=== PATIENT | female | born 1970 | race Caucasian/White ===

== ENCOUNTER → 2016-12-04 | Outpatient (CLI) | payer BC ==
[~2016-12-04] MED LIST: LAMO1TAB21; LIOT50TA PO; THYR300T
--- NOTE | 2016-12-04 12:26 | MAMMOGRAPHY REPORT ---
UNILATERAL RIGHT DIGITAL DIAGNOSTIC MAMMOGRAM TOMOSYNTHESIS WITH CAD AND TARGETED RIGHT ULTRASOUND: 12/04/2016 CLINICAL HISTORY: History of right breast mass status post ultrasound-guided biopsy April 2016. The pathology showed benign breast tissue, with some areas showing fibroadenomatoid features and and oth ers showing sclerosing adenosis. Here for short interval follow-up of the right breast mass. TECHNIQUE: Breast tomosynthesis in addition to standard 2D mammography was performed. Current study was also evaluated with a Computer Aided Detection (CAD) system. Right CC and MLO 2-D and tomosynt hesis images were obtained. COMPARISON: Comparison is made to exams dated: 04/15/2016 mammogram, 04/09/2016 mammogram, 01/25/2014 ul trasound, 01/25/2014 mammogram, and 07/19/2013 mammogram - [facility]. BREAST COMPOSITION: There are scattered areas of fibroglandular density in the right breast. FINDINGS: Again noted is an oval mass with obscured margins in the right upper outer quadrant, with an associated biopsy marker clip. The mass does not appear significantly changed compared to the p rior March and April 2016 exams. The remainder of the right breast is stable compared to prior exams, without suspicious masses, calcifications, or areas of architectural distortion noted. Targeted ultrasound was performed of the area of the previously biopsied mass. In the right breast at 10:00, 7 cm from the nipple, again noted is an oval hypoechoic parallel circumscribed mass, with an echogenic biopsy marker clip seen within it. The mass currently measures 11 x 5 x 8 mm, and is n ot significantly changed compared to the April 2016 exam where the mass measured 10 x 5 x 9 mm. Give n that the mass was biopsied and yielded benign pathology and given the stability, the mass is consi dered benign. IMPRESSION: ACR BI-RADS CATEGORY 2: BENIGN, TARGETED ULTRASOUND ACR BI-RADS CATEGORY 2: BENIGN Stable size and appearance of the hypoechoic 11 mm mass in the right breast at 10:00. This was prev iously biopsied and yielded benign pathology. Given the benign pathology on biopsy and given the st ability, the mass is considered benign. There is no mammographic or targeted sonographic evidence o f malignancy. Return to annual mammogram screening schedule is recommended, due April 2017. The patient has been verbally notified of the results. Approximately 10% of breast cancers are not detected with mammography. A negative mammographic repor t should not delay biopsy if a clinically suggestive mass is present. Abigail Emanuel M.D. ah/:12/04/2016 10:08:48 Manager Food Safety: Luisana MEANS(Jorge)(Jarret), [facility] letter sent: Normal 1/2 BI-RADS Code: ACR BI-RADS Category 2: Benign Ultrasound BI-RADS: ACR BI-RADS Category 2: Benign
== END | disposition home or self-care (01) ==
LOC: C.MAMM 09:15
PROVIDERS: ATTEND Internal Medicine
DX: N63 Unspecified lump in breast (principal)

== ENCOUNTER → 2017-04-19 | Outpatient (CLI) | payer BC, OTHER | END | disposition home or self-care (01) | LOC: C.PAPS 11:56 | PROVIDERS: ATTEND Obstetrics & Gynecology | DX: Z01.419 Encounter for gynecological examination (general) (routine) without abnormal findings (principal) ==

== ENCOUNTER → 2017-04-27 | Outpatient (CLI) | payer BC, OTHER ==
[2017-04-27 17:07] LABS: URINE APPEARANCE CLOUDY (CLEAR); URINE BILIRUBIN NEG (NEG); URINE COLOR ORANGE; URINE NITRITE POS (NEG); URINE SPECIFIC GRAVITY 1.013 (1.000-1.030); UROBILINOGEN NEG (NEG)
[2017-04-27 17:09] LABS: MANUAL MICROSCOPIC REQUIRED? NO; REVIEW REQ? YES
== END | disposition home or self-care (01) ==
LOC: C.LABBC 15:24
PROVIDERS: ATTEND Physician Assistant Medical
DX: R39.9 Unspecified symptoms and signs involving the genitourinary system (principal)

== ENCOUNTER → 2017-08-17 | Outpatient (CLI) | payer BC ==
[2017-08-20 00:32] LABS: CHLAMYDIA TRACH RNA*** NOT DETECTED (NOT DETECTED); GC (NEIS GONORRHOEAE)RNA** NOT DETECTED (NOT DETECTED)
== END | disposition home or self-care (01) ==
LOC: C.LABSPEC 17:59
PROVIDERS: ATTEND Physician Assistant
DX: Z11.3 Encounter for screening for infections with a predominantly sexual mode of transmission (principal)

== ENCOUNTER → 2017-09-16 | Outpatient (CLI) | payer BC | END | disposition home or self-care (01) | LOC: C.LABBC 14:23 | PROVIDERS: ATTEND Physician Assistant | DX: Z11.3 Encounter for screening for infections with a predominantly sexual mode of transmission (principal) ==

== ENCOUNTER 2021-06-10 14:21 | Observation (INO) ==
--- NOTE | 2021-06-10 15:39 | Emergency Department Note ---
Impression & Plan Acute left flank pain, Elevated d-dimer, Pulmonary emboli, Tachycardia ED Provider Note NAME: JELLY ESTEVEZ AGE: 51 SEX: F : 1970 ARRIVES VIA: Walk-In INFORMANT: [Patient] ED PROVIDER(S): [Kasi Myers MD] CHIEF COMPLAINT: Abnormal labs/imaging HISTORY OF PRESENT ILLNESS: The patient is a 51-year-old female who states that about a week ago, she developed pain in her left flank that she thought was muscular. The pain went away pretty quickly but she went to her doctor's office and had a chest x-ray. The x-ray was negative. A D-dimer test was positive. Today, she had a CT of her chest and a PE was noted. She was directed to the ED. The patient feels a bit dizzy at times but does not have any more back pain. She is not short of breath. No chest pain. No fever or cough. She has never had a DVT or PE. There is no family history of this diagnosis. She has not had pain in her legs. There has been no long trip by car, plane or train. REVIEW OF SYSTEMS: See HPI for pertinent positives and negatives. A total of ten systems were reviewed and were otherwise negative. PMHx/PSHx: See Below SOCIAL HISTORY: See Below. PHYSICAL EXAM: GENERAL: Patient is in no acute distress. HEENT: No acute trauma, normocephalic atraumatic, mucous membranes moist, no nasal congestion, no scleral icterus. NECK: No stridor, no adenopathy, no meningismus, trachea is midline. LUNGS: Clear to auscultation bilaterally, no wheeze, no rhonchi, breath sounds equal. HEART: Mildly tachycardic, regular rhythm, no murmurs. ABDOMEN: Soft, nontender, bowel sounds positive, no hernias, no peritonitis. EXTREMITIES: No cyanosis or edema, full range of motion of all the joints without pain or difficulty, no signs for acute trauma. NEUROLOGIC: Oriented x 3, no acute motor or sensory deficits, no focal weakness. SKIN: No rash, no jaundice, no diaphoresis. DIFFERENTIAL DIAGNOSIS: Cardiac ischemia, aortic dissection, pulmonary embolism, DVT, pneumothorax, pneumonia, pericarditis, myocarditis, esophageal rupture, GERD, cholecystitis, pancreatitis, musculoskeletal, as well as other pathologies. EMERGENCY DEPARTMENT COURSE/PROCEDURES: ECG: Indication was tachycardia and pulmonary emboli. The ECG shows a sinus rhythm with a rate of 97. There is no ST elevation, no PVCs. There is some artifact present. The QTc is 439. Continuous Cardiac Monitoring: An order was placed for continuous cardiac monitoring. The monitor shows a rate of 91 with normal sinus rhythm. Critical Care Note: I have personally spent 49 minutes of critical care time in the direct management of this patient. This includes bedside care, interpretation of diagnostic studies, and testing, discussion with consultants, patient, and family members, and other required patient management activities. This 49 minutes is in excess of all separately billable procedures. MEDICAL DECISION MAKING: There is no leukocytosis or concerning anemia. Platelet count slightly elevated. No coagulopathy. No significant electrolyte abnormality or kidney failure. No worrisome liver enzyme elevation. ECG showed a sinus rhythm, no acute ischemic change. Cardiac enzyme testing x1 is not consistent with acute cardiac injury. BNP is not elevated. Covid testing returned negative. Bilateral lower extremity ultrasound did not show any evidence for DVT. The patient presents with an abnormal D-dimer as an outpatient. She subsequently had a chest CT showing bilateral pulmonary emboli and a pulmonary infarct. There was some right heart strain suggested. The patient is in need of a hospital stay given the findings on CT. I did elect to start IV heparin. The heparin was started here in the ED. The patient is aware of her findings, she understands the need for a hospital stay and further work-up. I did speak with the patient and case management. The on-call hospitalist was consulted. Past Med/Surg History Medical History ADD (attention deficit disorder) Depression Hypothyroidism Surgical History H/O breast biopsy (~2015) US guided core biopsy right breast - benign H/O colonoscopy (~2012) H/O LEEP History of wisdom tooth extraction Family History Grandmother (Maternal) Breast cancer Father Colorectal cancer, Onset Age: 43 Other No family history of adverse response to anesthesia Denies family history of Ovarian cancer Social History Smoking Status: Never smoker Second Hand Exposure: No; Hx Alcohol Use: Yes Hx Substance Use: No Preferred Language: Azeri Communication Ability: Effective Fudger Required: No Beliefs That Will Affect Care: None Current Living Situation: Alone Feels Safe at Home: Yes Safety Concerns: Feels Safe At This Time Assistive Devices: None Allergies Allergies Allergy/AdvReac Type Severity Reaction Status Date / Time Penicillins Allergy Unknown Verified 06/10/21 21:04 sulfamethoxazole Allergy Unknown Verified 06/10/21 21:04 [From Bactrim] trimethoprim [From Bactrim] Allergy Unknown Verified 06/10/21 21:04 Home Meds Home Medications Medication Instructions Recorded Confirmed dextroamphetamine-amphetamine 10 10 mg PO BID 11/11/20 06/10/21 mg tablet (Adderall) duloxetine 60 mg capsule,delayed 60 mg PO QPM 11/11/20 06/10/21 release lamotrigine 200 mg tablet 200 mg PO QPM 11/11/20 06/10/21 lorazepam 1 mg tablet (Ativan) 1 mg PO DAILY PRN 11/11/20 06/10/21 trazodone 50 mg tablet 50 mg PO HS 11/11/20 06/10/21 lamotrigine 25 mg tablet 50 mg PO DAILY 06/10/21 06/10/21 levothyroxine 125 mcg tablet 250 mcg PO BID 06/10/21 06/10/21 levothyroxine 137 mcg tablet 137 mcg PO DAILYBB 06/10/21 06/10/21 norethindrone 1.5 mg-ethinyl 1 tab PO DAILY 06/10/21 06/10/21 estradiol 30 mcg(21)/iron 75 mg(7) tablet (Junel FE 1.5/30 (28)) Results & Data (ED) Vital Signs Vital Signs - 24 hr 06/10/21 14:24 06/10/21 15:32 06/10/21 16:00 Pulse Rate 112 H 91 H 94 H Pulse Rate from SpO2 Sensor 95 H Pulse Rhythm Regular Respiratory Rate 18 15 20 Blood Pressure 157/93 H 149/81 H Blood Pressure Mean 114 103 Blood Pressure Position Sitting Pulse Oximetry 97 100 98 Oxygen Delivery Method Room Air Sepsis Recent Fever Within 48 Hours No Sepsis New/Unexplained Change in Mental Status No Sepsis Action Taken by Nursing No Action Required 06/10/21 16:31 06/10/21 17:00 Pulse Rate 116 H Pulse Rate from SpO2 Sensor 103 H 91 H Pulse Rhythm Respiratory Rate 14 16 Blood Pressure 142/84 H 118/74 Blood Pressure Mean 103 88 Blood Pressure Position Pulse Oximetry 99 99 Oxygen Delivery Method Room Air Sepsis Recent Fever Within 48 Hours Sepsis New/Unexplained Change in Mental Status Sepsis Action Taken by Fdc Medications Current Medication List: was personally reviewed by me Laboratory Data Attestation: I reviewed the patient's lab results. Result diagrams: 06/10/21 16:23 06/10/21 16:23 Lab Results 06/10/21 06/10/21 06/10/21 Range/Units 15:57 15:57 16:23 WBC 8.48 (4.8-10.8) K/uL RBC 4.64 (4.2-5.4) M/uL Hgb 13.8 (12.0-16.0) g/dL Hct 41.0 (37-47) % MCV 88.4 (80-100) fL MCH 29.7 (25-34) pg MCHC 33.7 (32-36) g/dL RDW Std Deviation 42.6 (36.4-46.3) fL RDW Coeff of Lexy 13.2 (11.5-14.5) % Plt Count 465 H (130-400) K/uL MPV 8.4 (7.4-10.4) fL Immature Gran % (Auto) 0.1 % Neut % (Auto) 62.6 % Lymph % (Auto) 28.2 % [place] % (Auto) 7.3 % Eos % (Auto) 1.4 % Baso % (Auto) 0.4 % Neut # (Auto) 5.31 (1.4-6.5) K/uL Lymph # (Auto) 2.39 (1.2-3.4) K/uL [place] # (Auto) 0.62 H (0.11-0.59) K/uL Eos # (Auto) 0.12 (0-0.5) K/uL Baso # (Auto) 0.03 (0-0.2) K/uL Immature Gran # (Auto) 0.01 (0.00-0.02) K/uL PT (9.0-12.0) Seconds INR (0.9-1.1) APTT (21.0-31.0) Seconds PTT Ratio Sodium (136-145) mmol/L Potassium (3.5-5.1) mmol/L Chloride (98-107) mmol/L Carbon Dioxide (21-32) mmol/L Anion Gap (3-11) BUN (7-18) mg/dl Creatinine (0.6-1.2) mg/dl Est Cr Clr Drug Dosing ml/min Est GFR ( Amer) ml/min Est GFR (Non-Af Amer) ml/min BUN/Creatinine Ratio (10-20) Glucose (70-99) mg/dl Calcium (8.5-10.1) mg/dl Magnesium (1.8-2.4) mg/dl Total Bilirubin (0.2-1) mg/dl AST (15-37) U/L ALT (12-78) U/L Alkaline Phosphatase (45-117) U/L Troponin I (0-0.045) ng/ml NT-Pro-B Natriuret Pep (0-450) pg/ml Total Protein (6.4-8.2) gm/dl Albumin (3.4-5.0) gm/dl Globulin (2.5-4.0) gm/dl Albumin/Globulin Ratio (0.9-2) TSH (0.300-4.500) uIu/ml Free T4 (0.8-1.6) ng/dl COVID-19 Eval Order Covid19 at [facility] SARS-CoV-2 (PCR) NEGATIVE (Negative) 06/10/21 06/10/21 Range/Units 16:23 16:23 WBC (4.8-10.8) K/uL RBC (4.2-5.4) M/uL Hgb (12.0-16.0) g/dL Hct (37-47) % MCV (80-100) fL MCH (25-34) pg MCHC (32-36) g/dL RDW Std Deviation (36.4-46.3) fL RDW Coeff of Lexy (11.5-14.5) % Plt Count (130-400) K/uL MPV (7.4-10.4) fL Immature Gran % (Auto) % Neut % (Auto) % Lymph % (Auto) % [place] % (Auto) % Eos % (Auto) % Baso % (Auto) % Neut # (Auto) (1.4-6.5) K/uL Lymph # (Auto) (1.2-3.4) K/uL [place] # (Auto) (0.11-0.59) K/uL Eos # (Auto) (0-0.5) K/uL Baso # (Auto) (0-0.2) K/uL Immature Gran # (Auto) (0.00-0.02) K/uL PT 10.3 (9.0-12.0) Seconds INR 1.0 (0.9-1.1) APTT 23.5 (21.0-31.0) Seconds PTT Ratio 0.9 Sodium 137 (136-145) mmol/L Potassium 3.8 (3.5-5.1) mmol/L Chloride 105 (98-107) mmol/L Carbon Dioxide 26 (21-32) mmol/L Anion Gap 6.0 (3-11) BUN 11 (7-18) mg/dl Creatinine 1.14 (0.6-1.2) mg/dl Est Cr Clr Drug Dosing 75.7 ml/min Est GFR ( Amer) 65.4 ml/min Est GFR (Non-Af Amer) 56.4 ml/min BUN/Creatinine Ratio 9.3 L (10-20) Glucose 88 (70-99) mg/dl Calcium 9.1 (8.5-10.1) mg/dl Magnesium 1.9 (1.8-2.4) mg/dl Total Bilirubin 0.2 (0.2-1) mg/dl AST 12 L (15-37) U/L ALT 28 (12-78) U/L Alkaline Phosphatase 90 (45-117) U/L Troponin I < 0.015 (0-0.045) ng/ml NT-Pro-B Natriuret Pep 79 (0-450) pg/ml Total Protein 7.2 (6.4-8.2) gm/dl Albumin 3.1 L (3.4-5.0) gm/dl Globulin 4.1 H (2.5-4.0) gm/dl Albumin/Globulin Ratio 0.8 L (0.9-2) TSH 5.990 H (0.300-4.500) uIu/ml Free T4 1.42 (0.8-1.6) ng/dl COVID-19 Eval Order SARS-CoV-2 (PCR) (Negative) Administered Medications Duloxetine HCl (Duloxetine Hcl 60 Mg Cap) 60 mg PO QPM [facility] Stop: 07/10/21 20:59 Last Admin: 06/10/21 22:01 Dose: 60 mg Documented by: [id number] Heparin Sodium/Dextrose (Heparin Sodium/Dextrose) 25,000 units in 500 mls @ 29 mls/hr IV .[id number] [facility]; Protocol Stop: 07/10/21 17:29 Last Admin: 06/10/21 18:16 Dose: 1,450 units/hr, 29 mls/hr Documented by: [id number] Cosigned by: [id number] Lamotrigine (Lamotrigine 100 Mg Tab) 200 mg PO QPM [facility] Stop: 07/10/21 20:59 Last Admin: 06/10/21 22:02 Dose: 200 mg Documented by: [id number] Levothyroxine Sodium (Levothyroxine Sodium 125 Mcg Tablet) 250 mcg PO BID [facility] Stop: 07/10/21 20:59 Last Admin: 06/10/21 22:03 Dose: Not Given Documented by: [id number] Trazodone HCl (Trazodone Hcl 50 Mg Tab) 50 mg PO HS [facility] Stop: 07/10/21 20:59 Last Admin: 06/10/21 22:02 Dose: 50 mg Documented by: [id number] Discontinued Medications Amphetamine/Dextroamphetamine (Amphetamine Asp/Sulf/Dextramph 10 Mg Tab) 10 mg PO ONE ONE Stop: 06/10/21 21:16 Last Admin: 06/10/21 22:13 Dose: Not Given Documented by: [id number] Heparin Sodium (Porcine) (Heparin Sod (Porcine) 1000 Unit/Ml) 1 units IV NOW ONE Stop: 06/10/21 17:31 Last Admin: 06/10/21 18:16 Dose: 5,000 units Documented by: [id number] Cosigned by: [id number] Heparin Sodium/Dextrose (Heparin Iv Adult Wt-Based Standard With Bolus Protocol) 1 ea IV NOW STA; Protocol Stop: 06/10/21 17:16 Last Admin: 06/10/21 18:17 Dose: 1 ea Documented by: [id number] Imaging Data Radiologist's Impression: Venous Doppler Study 06/10/21 15:32 BILATERAL LOWER EXTREMITY VENOUS DOPPLER CLINICAL HISTORY: pe on chest ct COMPARISON STUDY: No previous studies for comparison. TECHNIQUE: Sonography of the deep venous system of the bilateral lower extremities was performed. Compression and augmentation were evaluated. FINDINGS: The bilateral common femoral, superficial femoral and popliteal veins were compressible. Augmentation was normal. Flow was shown within the deep calf vessels. IMPRESSION: No evidence of deep venous thrombus within the bilateral lower extremities. ACT 112: Negative or not required by law. Electronically signed by: Carrillo Valdez M.D. 06/10/2021 6:[address] for PE: This is test was performed on 06/10/2021 at [facility]. Impression Multiple scattered segmental and subsegmental pulmonary emboli bilaterally most significantly involving the left lower lobe. Straightening of the left interventricular septum suggestive of right heart strain. There is an irregular hypodensity in the right atrium and right ventricle which may represent contrast mixing, a mass would be difficult to exclude. There is a focal wedge-shaped density in the left lung base thought likely consistent with a pulmonary infarction. Discharge Plan Visit Data Chief Complaint: Abnormal Labs/Diagnostic Testing Stated Complaint: RADIOLOGIST @ [facility] SAW BLOOD CLOT ON CT Discharge Problem: Acute left flank pain, Elevated d-dimer, Pulmonary emboli, Tachycardia Patient Disposition: Admitted As Inpatient Condition: Fair Discharge Instructions Interventions: ED Discharge Assessment Last Done: 06/10/21 19:06
[2021-06-10 16:53] LABS: Basophils # (auto) 0.03 K/uL (0-0.2); Basophils % (auto) 0.4 %; Eosinophils # (auto) 0.12 K/uL (0-0.5); Eosinophils % (auto) 1.4 %; Hemoglobin 13.8 g/dL (12.0-16.0); Immature Granulocytes # (auto) 0.01 K/uL (0.00-0.02); Immature Granulocytes % (auto) 0.1 %; Lymphocytes # (auto) 2.39 K/uL (1.2-3.4); Lymphocytes % (auto) 28.2 %; Mean Corpuscular Hemoglobin 29.7 pg (25-34); Mean Corpuscular Hgb Conc 33.7 g/dL (32-36); Mean Corpuscular Volume 88.4 fL (80-100); Mean Platelet Volume 8.4 fL (7.4-10.4); Monocytes # (auto) 0.62 K/uL (0.11-0.59); Monocytes % (auto) 7.3 %; Neutrophils # (auto) 5.31 K/uL (1.4-6.5); Neutrophils % (auto) 62.6 %; Platelet Count 465 K/uL (130-400); RDW Coefficient of Variation 13.2 % (11.5-14.5); RDW Standard Deviation 42.6 fL (36.4-46.3); Red Blood Count 4.64 M/uL (4.2-5.4); White Blood Count 8.48 K/uL (4.8-10.8)
[2021-06-10 17:08] LABS: Partial Thromboplastin Ratio 0.9; Partial Thromboplastin Time 23.5 Seconds (21.0-31.0); Prothrombin Time 10.3 Seconds (9.0-12.0)
[2021-06-10 17:10] LABS: Alanine Aminotransferase 28 U/L (12-78); Albumin Level 3.1 gm/dl (3.4-5.0); Aspartate Aminotransferase 12 U/L (15-37); BUN Creatinine Ratio 9.3 (10-20); Blood Urea Nitrogen 11 mg/dl (7-18); Calcium 9.1 mg/dl (8.5-10.1); Carbon Dioxide 26 mmol/L (21-32); Chloride 105 mmol/L (98-107); Creatinine Clr Calc Pharmacy 75.7 ml/min; Est GFR (African American) 65.4 ml/min; Est GFR (Non-African American) 56.4 ml/min; Glucose 88 mg/dl (70-99); Magnesium 1.9 mg/dl (1.8-2.4); Potassium 3.8 mmol/L (3.5-5.1); Sodium 137 mmol/L (136-145)
[2021-06-10] MEDS ORDERED: Heparin IV Adult Wt-Based Standard WITH Bolus Protocol IV STA (17:15)
--- NOTE | 2021-06-10 17:18 | History & Physical Report ---
Date of Service June 10, 2021 Assessment & Plan (1) Bilateral pulmonary embolism: Plan: Pain in the left lower back and medial scapular area on the left about 10 days ago with elevated D-dimer and negative chest x-ray Resolution of symptoms since then but CTA did show multiple scattered segmental and subsegmental pulmonary emboli bilaterally most significantly involving the left lower lobe Left basal pulmonary infarct Likely cause is use of oral contraceptive pills We will check legs to rule out any deep venous thrombosis Intravenous heparin has been started Discussed with the patient about continued anticoagulation with Coumadin and/or DOAC-awaiting decision Possible right heart strain CTA reported straightening of the interventricular septum suggestive of right heart strain Also noted to have an irregular hypodensity in the right atrium and right vent ricle may represent contrast mixing artifact EKG did not show any RV strain or T wave abnormality Troponin was not elevated Stat echo did not show any RV and/or RA thrombus and no evidence of RV strain She will be monitored in telemetry unit (2) ADD (attention deficit disorder): Plan: We will continue current medications (3) Depression: Plan: Feels more anxious after the diagnosis We will continue current medications (4) Hypothyroidism: Plan: Continue supplement TSH is mildly high at 5.99 but free T4 is normal No change in her current medication Plan: DVT prophylaxis Intravenous heparin CODE STATUS Full History of Present Illness Chief Complaint: Episode of back pain and left-sided chest pain at the back about 10 days ago and was sent in from home with multiple pulmonary emboli noted in CAT scan Primary Care Provider: Linda Rodriguez MD She is a 51-year-old female with significant past medical history of major depression, hypothyroidism and control pill for the last 1 year apparently complained to have back pain on the left side and also pain over left scapular area about 10 days ago. Was seen by the PCP and x-ray came back negative but D- dimer was noted to be high. Her symptoms of chest pain resolved and she did not have any other symptoms of palpitation, shortness of breath, cough or any phlegm, any fever and/or chills or any other significant symptoms. She was sent for a CAT scan and noted to have multiple scattered segmental and subsegmental pulmonary emboli bilaterally most significantly involving the left lower lobe with possible right heart strain and she was sent in from home to the emergency room. No history of prolonged rest and or travel and no family history of clot formation. Denies any calf swelling or calf tenderness. She has been on oral control pill with Junel FE .04/06 once daily for the last 1 year.Does Not have any complaints of chest pain, palpitation, shortness of breath even with exertion. Complains only to have occasional dizziness. Allergies Allergy/AdvReac Type Severity Reaction Status Date / Time PENICILLIN Allergy Mild unsure Uncoded 06/10/21 15:21 Home Medications Medication Instructions Recorded Confirmed Type dextroamphetamine-amphetamine 10 10 mg PO BID 11/11/20 06/10/21 History mg tablet (Adderall) duloxetine 60 mg capsule,delayed 60 mg PO QPM 11/11/20 06/10/21 History release lamotrigine 200 mg tablet 200 mg PO QPM 11/11/20 06/10/21 History lorazepam 1 mg tablet (Ativan) 1 mg PO DAILY PRN 11/11/20 06/10/21 History trazodone 50 mg tablet 50 mg PO HS 11/11/20 06/10/21 History lamotrigine 25 mg tablet 50 mg PO DAILY 06/10/21 06/10/21 History levothyroxine 125 mcg tablet 250 mcg PO BID 06/10/21 06/10/21 History levothyroxine 137 mcg tablet 137 mcg PO DAILYBB 06/10/21 06/10/21 History norethindrone 1.5 mg-ethinyl 1 tab PO DAILY 06/10/21 06/10/21 History estradiol 30 mcg(21)/iron 75 mg(7) tablet (Aprill FE (28)) Past Med/Surg History Medical History (Updated 06/10/21 @ 17:14 by Nithin Mabry MD) ADD (attention deficit disorder) Depression Hypothyroidism Surgical History H/O breast biopsy (~2015) US guided core biopsy right breast - benign H/O colonoscopy (~2012) H/O LEEP History of wisdom tooth extraction Family History Grandmother (Maternal) Breast cancer Father Colorectal cancer, Onset Age: 43 Other No family history of adverse response to anesthesia Denies family history of Ovarian cancer Social History Smoking Status: Never smoker Second Hand Exposure: No; Hx Alcohol Use: No Hx Substance Use: No Preferred Language: Central African Communication Ability: Effective Power Wood Sawyer Required: No Beliefs That Will Affect Care: None Current Living Situation: Alone Feels Safe at Home: Yes Assistive Devices: Glasses Review of Systems Review of Systems: All systems reviewed & are unremarkable except as noted in HPI & below Physical Exam Physical Exam: Lying in bed comfortably but looked very anxious Constitutional: well developed, well nourished and + ill appearing; no acute distress Eyes: PERRL, conjunctivae normal, anicteric sclerae ENMT: external ear and nose normal, oropharynx normal Respiratory: normal respiratory effort; no respiratory distress Auscultation: lungs clear to auscultation bilaterally Cardiovascular: Rate/Rhythm: regular rate, regular rhythm and + tachycardic Heart Sounds: normal S1 and normal S2; no murmur Extremities: no edema Gastrointestinal (Abdomen): normal bowel sounds, soft, nontender, no hepatosplenomegaly Musculoskeletal: No acute arthritis in any joint Neurologic: Alert, awake and oriented x3. No focal sensory and motor deficit appreciated Psychiatric: Mood: + depressed mood and + anxious mood Lymphatic: no cervical or axillary lymphadenopathy Results & Data Results & Data ([facility]) Vital Signs (Past 12 Hours) Vital Signs Pulse Resp BP Pulse Ox 06/10/21 16:31 116 H 14 142/84 H 99 06/10/21 16:00 94 H 20 149/81 H 98 06/10/21 15:32 91 H 15 100 06/10/21 14:24 112 H 18 157/93 H 97 Laboratory Results Short CBC 06/10/21 Range/Units 16:23 WBC 8.48 (4.8-10.8) K/uL Hgb 13.8 (12.0-16.0) g/dL Hct 41.0 (37-47) % Plt Count 465 H (130-400) K/uL BMP 06/10/21 16:23 Sodium 137 Potassium 3.8 Chloride 105 Carbon Dioxide 26 BUN 11 Creatinine 1.14 Glucose 88 Calcium 9.1 Liver Function 06/10/21 Range/Units 16:23 AST 12 L (15-37) U/L ALT 28 (12-78) U/L Albumin 3.1 L (3.4-5.0) gm/dl Code Status & VTE Plan VTE Prophylaxis Plan VTE Prophylaxis will be ordered: Yes
[2021-06-10 17:21] LABS: Albumin Globulin Ratio 0.8 (0.9-2); Alkaline Phosphatase 90 U/L (45-117); Bilirubin,Total 0.2 mg/dl (0.2-1); Globulin 4.1 gm/dl (2.5-4.0); NT Pro B Type Natriuretic Pept 79 pg/ml (0-450); Total Protein 7.2 gm/dl (6.4-8.2); Troponin I < 0.015 ng/ml (0-0.045)
[2021-06-10] MEDS ORDERED: HEPARIN SODIUM/DEXTROSE 25,000 UNITS/500 ML BAG IV SCH (17:30)
[2021-06-10] MEDS ORDERED: HEPARIN SOD (PORCINE) 1000 UNIT/ML IV ONE (17:30)
[2021-06-10 17:40] LABS: T4 Free Thyroxine 1.42 ng/dl (0.8-1.6)
--- NOTE | 2021-06-10 18:10 | Ultrasound Report ---
BILATERAL LOWER EXTREMITY VENOUS DOPPLER CLINICAL HISTORY: pe on chest ct COMPARISON STUDY: No previous studies for comparison. TECHNIQUE: Sonography of the deep venous system of the bilateral lower extremities was performed. Co mpression and augmentation were evaluated. FINDINGS: The bilateral common femoral, superficial femoral and popliteal veins were compressible. A ugmentation was normal. Flow was shown within the deep calf vessels. IMPRESSION: No evidence of deep venous thrombus within the bilateral lower extremities. ACT 112: Negative or not required by law. Electronically signed by: Carrillo Valdez M.D. 06/10/2021 6:08 PM
[2021-06-10] MEDS ORDERED: DULoxetine HCL 60 MG CAP PO SCH (21:00)
[2021-06-10] MEDS ORDERED: lamoTRIgine 100 MG TAB PO SCH (21:00)
[2021-06-10] MEDS ORDERED: LEVOTHYROXINE SODIUM 125 MCG TABLET PO SCH (21:00)
[2021-06-10] MEDS ORDERED: traZODone HCL 50 MG TAB PO SCH (21:00)
[2021-06-10] MEDS ORDERED: LORazepam 1 MG TAB PO PRN (21:07)
[2021-06-10] MEDS: AMPHETAMINE ASP/SULF/DEXTRAMPH 10 MG TAB PO ONE ×2 (22:01→22:13)
[2021-06-10] MEDS: NSS + 20MEQ KCL 20 MEQ/1,000 ML BAG IV SCH (23:19)
[2021-06-11 01:59] LABS: Partial Thromboplastin Ratio 1.9
[2021-06-11 02:03] LABS: Partial Thromboplastin Time 49.3 Seconds (21.0-31.0)
[2021-06-11] MEDS ORDERED: Nursing to Pharmacy Communication SCH (03:30)
[2021-06-11] MEDS ORDERED: LEVOTHYROXINE SODIUM 137 MCG TABLET PO SCH (06:30)
[2021-06-11 08:23] LABS: Basophils # (auto) 0.03 K/uL (0-0.2); Basophils % (auto) 0.4 %; Eosinophils # (auto) 0.12 K/uL (0-0.5); Eosinophils % (auto) 1.6 %; Hematocrit (blood only) 37.2 % (37-47); Immature Granulocytes # (auto) 0.02 K/uL (0.00-0.02); Immature Granulocytes % (auto) 0.3 %; Lymphocytes # (auto) 3.41 K/uL (1.2-3.4); Lymphocytes % (auto) 45.2 %; Mean Corpuscular Hemoglobin 28.8 pg (25-34); Mean Corpuscular Hgb Conc 32.3 g/dL (32-36); Mean Corpuscular Volume 89.2 fL (80-100); Mean Platelet Volume 8.6 fL (7.4-10.4); Monocytes # (auto) 0.66 K/uL (0.11-0.59); Monocytes % (auto) 8.8 %; Neutrophils % (auto) 43.7 %; Platelet Count 381 K/uL (130-400); RDW Coefficient of Variation 13.3 % (11.5-14.5); RDW Standard Deviation 43.5 fL (36.4-46.3); Red Blood Count 4.17 M/uL (4.2-5.4); White Blood Count 7.54 K/uL (4.8-10.8)
[2021-06-11 08:57] LABS: Calcium 8.4 mg/dl (8.5-10.1); Creatinine Clr Calc Pharmacy 91.5 ml/min; Est GFR (African American) 83.6 ml/min; Est GFR (Non-African American) 72.2 ml/min; Potassium 3.6 mmol/L (3.5-5.1)
[2021-06-11] MEDS ORDERED: AMPHETAMINE ASP/SULF/DEXTRAMPH 10 MG TAB PO SCH ×3 (09:00→12:00)
[2021-06-11] MEDS ORDERED: lamoTRIgine 25 MG TAB PO SCH (09:00)
[2021-06-11 09:04] LABS: Magnesium 2.1 mg/dl (1.8-2.4)
[2021-06-11] MEDS: NSS + 20MEQ KCL 20 MEQ/1,000 ML BAG IV SCH (10:01)
--- NOTE | 2021-06-11 10:29 | Discharge Summary ---
Date of Service June 11, 2021 Admission HPI Per Admitting Provider She is a 51-year-old female with significant past medical history of major depression, hypothyroidism and control pill for the last 1 year apparently complained to have back pain on the left side and also pain over left scapular area about 10 days ago. Was seen by the PCP and x-ray came back negative but D- dimer was noted to be high. Her symptoms of chest pain resolved and she did not have any other symptoms of palpitation, shortness of breath, cough or any phlegm, any fever and/or chills or any other significant symptoms. She was sent for a CAT scan and noted to have multiple scattered segmental and subsegmental pulmonary emboli bilaterally most significantly involving the left lower lobe with possible right heart strain and she was sent in from home to the emergency room. No history of prolonged rest and or travel and no family history of clot formation. Denies any calf swelling or calf tenderness. She has been on oral control pill with once daily for the last 1 year.Does Not have any complaints of chest pain, palpitation, shortness of breath even with exertion. Complains only to have occasional dizziness. Admission Exam Per Admitting Provider Physical Exam: Lying in bed comfortably but looked very anxious Constitutional: well developed, well nourished and + ill appearing; no acute di stress Eyes: PERRL, conjunctivae normal, anicteric sclerae ENMT: external ear and nose normal, oropharynx normal Respiratory: normal respiratory effort; no respiratory distress Auscultation: lungs clear to auscultation bilaterally Cardiovascular: Rate/Rhythm: regular rate, regular rhythm and + tachycardic Heart Sounds: normal S1 and normal S2; no murmur Extremities: no edema Gastrointestinal (Abdomen): normal bowel sounds, soft, nontender, no hepatosplenomegaly Musculoskeletal: No acute arthritis in any joint Neurologic: Alert, awake and oriented x3. No focal sensory and motor defi cit appreciated Psychiatric: Mood: + depressed mood and + anxious mood Lymphatic: no cervical or axillary lymphadenopathy Principal Diagnosis Acute pulmonary embolism Discharge Exam CONSTITUTIONAL: WNWD, generally well-appearing EYES: normal conjunctivae, no scleral icterus ENT: external ear and nose normal, MMM RESPIRATORY: clear to auscultation bilaterally, no crackles, rales or wheezes, normal respiratory effort CARDIOVASCULAR: regular rate and rhythm, S1 and 2 heard without murmurs, gallops or rubs, no JVD, no peripheral edema GASTROINTESTINAL: soft, nontender, nondistended, no guarding. MUSCULOSKELETAL: strength 5/5 throughout, head is normocephalic and atraumatic SKIN: warm and dry NEUROLOGIC: CN 2-12 grossly intact, no sensory deficit, normal cognition, normal speech, no gross focal deficits PSYCHIATRIC: alert cooperative and oriented to person, place and time. Flat affect. Discharge Data Allergies Allergy/AdvReac Type Severity Reaction Status Date / Time Penicillins Allergy Unknown Verified 06/10/21 21:04 sulfamethoxazole Allergy Unknown Verified 06/10/21 21:04 [From Bactrim] trimethoprim [From Bactrim] Allergy Unknown Verified 06/10/21 21:04 Consultations 06/10/21 16:31 ED Decision to Admit Stat Ordered Studies Laboratory Results WBC 7.54 K/uL (4.8-10.8) 06/11/21 06:58 RBC 4.17 M/uL (4.2-5.4) L 06/11/21 06:58 Hgb 12.0 g/dL (12.0-16.0) 06/11/21 06:58 Hct 37.2 % (37-47) 06/11/21 06:58 MCV 89.2 fL (80-100) 06/11/21 06:58 MCH 28.8 pg (25-34) 06/11/21 06:58 MCHC 32.3 g/dL (32-36) 06/11/21 06:58 RDW Std Deviation 43.5 fL (36.4-46.3) 06/11/21 06:58 RDW Coeff of Lexy 13.3 % (11.5-14.5) 06/11/21 06:58 Plt Count 381 K/uL (130-400) 06/11/21 06:58 MPV 8.6 fL (7.4-10.4) 06/11/21 06:58 Immature Gran % (Auto) 0.3 % 06/11/21 06:58 Neut % (Auto) 43.7 % 06/11/21 06:58 Lymph % (Auto) 45.2 % 06/11/21 06:58 [place] % (Auto) 8.8 % 06/11/21 06:58 Eos % (Auto) 1.6 % 06/11/21 06:58 Baso % (Auto) 0.4 % 06/11/21 06:58 Neut # (Auto) 3.30 K/uL (1.4-6.5) 06/11/21 06:58 Lymph # (Auto) 3.41 K/uL (1.2-3.4) H 06/11/21 06:58 [place] # (Auto) 0.66 K/uL (0.11-0.59) H 06/11/21 06:58 Eos # (Auto) 0.12 K/uL (0-0.5) 06/11/21 06:58 Baso # (Auto) 0.03 K/uL (0-0.2) 06/11/21 06:58 Immature Gran # (Auto) 0.02 K/uL (0.00-0.02) 06/11/21 06:58 PT 10.3 Seconds (9.0-12.0) 06/10/21 16:23 INR 1.0 (0.9-1.1) 06/10/21 16:23 APTT 49.3 Seconds (21.0-31.0) H* 06/11/21 01:24 PTT Ratio 1.9 06/11/21 01:24 Sodium 139 mmol/L (136-145) 06/11/21 06:58 Potassium 3.6 mmol/L (3.5-5.1) 06/11/21 06:58 Chloride 109 mmol/L (98-107) H 06/11/21 06:58 Carbon Dioxide 24 mmol/L (21-32) 06/11/21 06:58 Anion Gap 6.0 (3-11) 06/11/21 06:58 BUN 8 mg/dl (7-18) 06/11/21 06:58 Creatinine 0.93 mg/dl (0.6-1.2) 06/11/21 06:58 Est Cr Clr Drug Dosing 91.5 ml/min 06/11/21 06:58 Est GFR ( Amer) 83.6 ml/min 06/11/21 06:58 Est GFR (Non-Af Amer) 72.2 ml/min 06/11/21 06:58 BUN/Creatinine Ratio 9.0 (10-20) L 06/11/21 06:58 Glucose 80 mg/dl (70-99) 06/11/21 06:58 Calcium 8.4 mg/dl (8.5-10.1) L 06/11/21 06:58 Magnesium 2.1 mg/dl (1.8-2.4) 06/11/21 06:58 Total Bilirubin 0.2 mg/dl (0.2-1) 06/10/21 16:23 AST 12 U/L (15-37) L 06/10/21 16:23 ALT 28 U/L (12-78) 06/10/21 16:23 Alkaline Phosphatase 90 U/L (45-117) 06/10/21 16:23 Troponin I < 0.015 ng/ml (0-0.045) 06/10/21 16:23 NT-Pro-B Natriuret Pep 79 pg/ml (0-450) 06/10/21 16:23 Total Protein 7.2 gm/dl (6.4-8.2) 06/10/21 16:23 Albumin 3.1 gm/dl (3.4-5.0) L 06/10/21 16:23 Globulin 4.1 gm/dl (2.5-4.0) H 06/10/21 16:23 Albumin/Globulin Ratio 0.8 (0.9-2) L 06/10/21 16:23 TSH 5.990 uIu/ml (0.300-4.500) H 06/10/21 16:23 Free T4 1.42 ng/dl (0.8-1.6) 06/10/21 16:23 COVID-19 Eval Order Covid19 at [facility] 06/10/21 15:57 SARS-CoV-2 (PCR) NEGATIVE (Negative) 06/10/21 15:57 Impressions Venous Doppler Study 06/10/21 15:32 BILATERAL LOWER EXTREMITY VENOUS DOPPLER CLINICAL HISTORY: pe on chest ct COMPARISON STUDY: No previous studies for comparison. TECHNIQUE: Sonography of the deep venous system of the bilateral lower extremities was performed. Compression and augmentation were evaluated. FINDINGS: The bilateral common femoral, superficial femoral and popliteal veins were compressible. Augmentation was normal. Flow was shown within the deep calf vessels. IMPRESSION: No evidence of deep venous thrombus within the bilateral lower extremities. ACT 112: Negative or not required by law. Electronically signed by: Carrillo Valdez M.D. 06/10/2021 6:08 PM Hospital Course (1) Bilateral pulmonary embolism: Pain in the left lower back and medial scapular area on the left about 10 days prior to arrival with elevated D-dimer and negative chest x-ray Resolution of symptoms since then but CTA did show multiple scattered segmental and subsegmental pulmonary emboli bilaterally most significantly involving the left lower lobe Left basal pulmonary infarct Likely cause is use of oral contraceptive pills No DVT on ultrasound with doppler of the lower extremities Intravenous heparin started with transition to eliquis at discharge. CTA reported straightening of the interventricular septum suggestive of right heart strain Also noted to have an irregular hypodensity in the right atrium and right ventricle may represent contrast mixing artifact EKG did not show any RV strain or T wave abnormality Troponin was not elevated Stat echo did not show any RV and/or RA thrombus and no evidence of RV strain Telemetry review revealed normal sinus rhythm throughout her stay. She was initially tachycardic on arrival but this resolved overnight and she was hemodynamically stable and afebrile at time of discharge. (2) Hypothyroidism: TSH is mildly high at 5.99 but free T4 is normal No change to her levothyroxine supplementation was made, with close PCP followup recommended after discharge. Total Time Total Time Spent Total Time Spent (In Minutes): 60 Discharge Plan Discharge Items Patient Disposition: Home - Self-Care Reason For Visit: Pulmonary Embolism Discharge Diagnosis: Acute pulmonary embolism Condition on Discharge: Fair Activity: Resume your previous activity Non-emergency contact: Primary Care Provider Call non-emergency contact if: you have any medication questions, your symptoms worsen, your pain is not controlled, your pain is worsening, your pain is unusual for you and your pain is concerning for you Follow-up/Referrals: Linda Rodriguez MD [Primary Care Provider] - Diet: Regular Addtl Attending Provider Instructions: Please take all medications as instructed on discharge list below. You will need to stop taking your oral contraceptive pills, as these may have been the reason for your blood clots. As a result, you may experience withdrawal symptoms. Please work with your primary care physician to help control symptoms as needed. You will start the apixaban (new blood thinner to treat the blood clots) at a dose of 10mg twice daily. After one week, please decrease to 5mg twice daily until you finish the 3-6 month course. Refills will come form your primary care physician. To reduce your risk of bleeding, please avoid non-steroidal anti- inflammatory drugs (NSAIDs) such as Motrin, Ibuprofen, Aspirin, Naproxen, Aleve, etc. Some herbals may also cause bleeding, so please check with your doctor prior to starting these. It is recommended to follow-up with your primary care physician within one week of discharge from the hospital to review the above and ensure you are still doing well after going home. It was a pleasure taking care of you! Please call if you have any questions or problems. You can reach a [facility] hospitalist on duty at [facility] 24 hours a day by calling [phone]. Take care of yourself. Agnieszka Lopez DO [facility] Hospitalist Pending Studies at Discharge: No Stand-Alone Forms: My [facility] Medications and DC Order Prescriptions: New Eliquis 5 mg Tablet 5 mg PO DIRECTED Qty: 74 RF: 0 Continued lamotrigine 200 mg tablet 200 mg PO QPM RF: 0 duloxetine 60 mg capsule,delayed release(DR/EC) 60 mg PO QPM RF: 0 trazodone 50 mg tablet 50 mg PO HS RF: 0 lorazepam [Ativan] 1 mg tablet 1 mg PO DAILY PRN (Reason: Anxiety) RF: 0 dextroamphetamine-amphetamine [Adderall] 10 mg tablet 10 mg PO BID RF: 0 levothyroxine 137 mcg tablet 137 mcg PO DAILYBB RF: 0 levothyroxine 125 mcg tablet 250 mcg PO BID RF: 0 lamotrigine 25 mg tablet 50 mg PO DAILY RF: 0 Discontinued norethindrone-e.estradiol-iron [.5 (28)] 1.5 mg-30 mcg (21)/75 mg (7) tablet 1 tab PO DAILY RF: 0 Discharge Orders: Discharge Order (Routine); Ordered 06/11/21 Ordered By: Agnieszka Lopez Admission Data Admit Date/Time: 06/10/21 17:02 Attending Provider: Agnieszka Lopez Admit Provider: Nithin Mabry Primary Care Provider: Linda Rodriguez Other Providers: Nithin Mabry Other Interventions: Discharge Summary Assessment (RN) Last Done: 06/11/21 11:56
[2021-06-11] MEDS ORDERED: APIXABAN 5 MG TABLET PO SCH (10:30)
--- NOTE | 2021-06-13 06:13 | Electrocardiogram Report ---
Test Reason : Blood Pressure : / mmHG Vent. Rate : 097 BPM Atrial Rate : 097 BPM P-R Int : 146 ms QRS Dur : 070 ms QT Int : 346 ms P-R-T Axes : 013 025 020 degrees QTc Int : 439 ms Sinus rhythm No previous ECGs available Confirmed by José Miguel Verde ([id number]) on 06/13/2021 6:13:33 AM Referred By: REFERRED SELF Confirmed By:José Miguel Verde
== END 2021-06-11 13:38 | disposition home or self-care (01) ==
LOC: ED 14:21 → 2S 17:02 → INTOOBSV 17:02 → SUATTDRO 17:02 → 2S 19:06